=== PATIENT | female | born 1990 | race Caucasian/White ===

== ENCOUNTER 2023-12-12 17:52 | Emergency (ER) | payer BC, SELFPAY ==
[2023-12-12 18:30] VITALS: BP 113/79; PULSE 66; RESP 16; TEMP 36.4; O2SAT 100
--- NOTE | 2023-12-12 19:11 | ED_ITS ---
HPI - Psych General Chief Complaint: Psychiatric Problem/Disorder Stated Complaint: Mental health Time Seen by Provider: 12/12/23 18:10 History of Present Illness HPI Narrative: This patient is a 33-year-old female brought in by police on a transport hold after a visit to [facility] where she had contact with the marriage and family social worker. She apparently made a statement that she wanted to join her mother who 20 years ago and wanted to jump off of a bridge. She comes in here against her will. She states that she does not need to be here and wants to go. I convinced her to stay as we simply want to help her. She is interviewed by me with assistance of ALS data communications technician. Her answers are rather short and she is not specific about her needs. She does state that she needs help for trauma. I tried to ask her what kind of trauma she is talking about but she did not give a specific answer. I mentioned emotional trauma and she seem to respond to this. She states that she does not to be in an inpatient setting but would welcome outpatient therapy. She states that she is not taking any medications. She does however report use of marijuana for medicinal purposes. She is repeatedly stating that she is not suicidal and is okay to go home and wants to go home. She tells me that she has not attempted suicide in the past and has not been hospitalized. She states that she does not want any medicines or drugs to treat her symptoms. Review of Systems Status of ROS: Reports: 10 or more systems reviewed and unremarkable except as noted in History and below Narrative: The patient denies any other health issues. A detailed review of systems was not obtained due to language barrier and very brief answers to questions. Exam Narrative: Exam Narrative: Constitutional: Well-developed, well-nourished, no acute distress. HEENT: Normocephalic, atraumatic. Neck: Normal range of motion. Nontender. Supple. Heart: Intact distal pulses. Lungs: No chest discomfort. No wheezes, rhonchi, or rales. Abdomen: Nontender. Back: Normal range of motion. Extremities: Normal range of motion. No injury. Skin: Intact. No rash. Warm. No erythema or pallor. Neurologic: No altered sensation. No weakness. Alert and oriented. Deaf. Psychiatric: She denies intent to harm herself. She does not expound on any further symptoms but expresses interest in getting therapy. Nursing notes and vitals signs are reviewed. Const: Vital Signs, click to edit/add: Vital Signs - 24 hr 12/12/23 18:30 Temperature 97.6 F Pulse Rate [Pulse Oximeter] 66 Respiratory Rate 16 Blood Pressure [Ri ght Upper Arm] 113/79 Pulse Oximetry 100 Oxygen Delivery Me thod Room Air Course Vital Signs Vital signs: Initial Vital Signs Temperature 97.6 F 12/12/23 18:30 Temperature Source Temporal Artery Scan 12/12/23 18:30 Pulse Rate 66 12/12/23 18:30 Respiratory Rate 16 12/12/23 18:30 Blood Pressure 113/79 12/12/23 18:30 Blood Pressure Mean 90 12/12/23 18:30 Blood Pressure Position Sitting 12/12/23 18:30 Pulse Oximetry 100 12/12/23 18:30 Oxygen Delivery Method Room Air 12/12/23 18:30 Vital Signs Temperature 97.6 F 12/12/23 18:30 Pulse Rate 66 12/12/23 18:30 Respiratory Rate 16 12/12/23 18:30 Blood Pressure 113/79 12/12/23 18:30 Pulse Oximetry 100 12/12/23 18:30 Oxygen Delivery Method Room Air 12/12/23 18:30 Temperature 97.6 F 12/12/23 18:30 Pulse Rate 66 12/12/23 18:30 Respiratory Rate 16 12/12/23 18:30 Blood Pressure 113/79 12/12/23 18:30 Pulse Oximetry 100 12/12/23 18:30 Oxygen Delivery Method Room Air 12/12/23 18:30 MDM - Psych MDM Narrative Medical decision making narrative: This patient is brought in by police because of concern of suicidality. The patient is rather animated but is deaf and unable to speak without data communications technician. She states that she does not need to be here. She went to the clinic and was transferred here out of concern for her mental health. There was no phone call from the clinic in this regard. A nurse here did make contact with the clinic and apparently she did make a comment that she just wanted to join with her mother who about 20 years ago. Communication was very difficult as the patient was adamant that she did not need to be here and stated that she is not planning to harm herself or others. She was initially rather uncooperative but over several hours here she became more calm. She did eventually agree to have her blood checked including a serum test. This return negative as does the rest of her blood show normal findings. The patient is satisfied with this. I did request our marriage and family social worker to come and provide options for therapy. The patient was not interested in these options as they were presented. Nevertheless she did receive a packet of information with various options where she can herself connect with resources for her. I did also provide a return to work note. She repeatedly states that she is not suicidal and has never attempted to harm herself and has not been hospitalized for her mood. She repeatedly endorses safety in this regard. The Lab Data Labs: Lab Results 12/12/23 Range/Units 20:44 WBC 9.92 (4.50-11.00) K/uL RBC 4.98 (4.00-5.20) m/uL Hgb 13.4 (12.0-16.0) gm/dL Hct 41.8 (33.0-51.0) % MCV 84 (80-100) fL MCH 27 (26-34) pg MCHC 32 (32-36) gm/dL RDW Coeff of German 14.2 (11.5-15.5) % Plt Count 367 (140-440) K/uL Neut % (Auto) 60.0 (42.0-72.0) % Lymph % (Auto) 32.8 (20-44) % [place] % (Auto) 5.7 (0.0-11.0) % Eos % (Auto) 0.8 (0.0-7.0) % Baso % (Auto) 0.6 (0.0-3.0) % Neut # (Auto) 5.95 (1.7-7.0) K/uL Lymph # (Auto) 3.25 H (0.90-2.90) K/uL [place] # (Auto) 0.60 (0.00-0.90) K/UL Eos # (Auto) 0.08 (0.00-0.50) K/uL Baso # (Auto) 0.06 (0.00-0.30) K/uL Abs Immat Gran (auto) 0.01 (0.00-0.30) K/uL Imm/Tot Granulo (auto) 0.1 % Sodium 136 (135-149) mmol/L Potassium 3.5 L (3.6-5.1) mmol/L Chloride 101 (96-114) mmol/L Carbon Dioxide 23 (20-32) mmol/L Anion Gap 12 (7-15) mEq/L BUN 7 (5-24) mg/dL Creatinine 0.6 (0.5-1.5) mg/dL Estimated GFR 122 ml/min Glucose 97 (60-115) mg/dL Calcium 9.5 (8.4-10.6) mg/dL HCG, Qual Negative (Negative) Discharge Plan Discharge Clinical Impression: Encounter for psychiatric assessment Patient Disposition: Home, Self-Care Condition: Stable Additional Instructions: Follow-up with primary physician. Consider resources provided for options for therapy. Return if worsening. Follow Up/Referrals: Maria Teresa Sosa DO [Primary Care Provider] - Stand Alone Forms: [employer] Info Instructions
--- NOTE | 2023-12-12 20:22 | PC.SOCIAL ---
Addendum entered by PHILIP Irwin 12/12/23 21:06: Added the following information to written packet to be given to pt if discharged home, [place] [employer] Deaf, Deafblind and Hard of Hearing State Services division Mental Health provider directory and list of crisis services specifically identified as serving individuals who are deaf, deafblind and hard of hearing. Original Note: Social work: Attempted to complete mental health assessment with pt. Parts Technician IPad was used for this interview. Pt refused to sit for interview and stated she wants to go home and to hurry up. cone worker explained the assessment process. Ess-6 was completed with pt. However, pt's answers to some questions were not consistent with collateral information provided by others who witnessed her behavior today. Pt denied having thoughts of suicide, denied ever attempting to kill herself; denied recent or current suicide plan; denied lifetime psychiatric hospitalization; denied any substance use. Pt also denied thoughts off hurting others. Pt stated she wanted this assessment to end and did not think the hospital was providing her any assistance. cone worker offered the possibility of an out-pt appointment with Speedy Boyce, a psychiatric nurse practitioner in [place] who has some reserved appointments for hospital patients. She stated she would not see a man and asked if there is a woman. Explained that there are female therapists in [place] but that the hospital only has reserved spots with Speedy. Patient stated she wanted to talk with the physician and social insurance administrator went to get the physician. cone worker put together a packet of information on out-pt counseling options including the [facility] Mental Health Resource list, [facility] and mental health resource list with crisis line contacts. RN to provide the written information to pt if pt is discharged to home. IPad button breaker used for this entire interaction..
[2023-12-12 20:53] LABS: Basophils Absolute Auto 0.06 K/uL (0.00-0.30); Basophils Percent Auto 0.6 % (0.0-3.0); Eosinophils Absolute Auto 0.08 K/uL (0.00-0.50); Eosinophils Percent Auto 0.8 % (0.0-7.0); Hematocrit 41.8 % (33.0-51.0); Hemoglobin* 13.4 gm/dL (12.0-16.0); Immature Granulocytes Abs Auto 0.01 K/uL (0.00-0.30); Immature Granulocytes Pct Auto 0.1 %; Lymphocytes Absolute Auto 3.25 K/uL (0.90-2.90); Lymphocytes Percent Auto 32.8 % (20-44); Mean Corpuscular HGB Conc 32 gm/dL (32-36); Mean Corpuscular Hemoglobin 27 pg (26-34); Mean Corpuscular Volume 84 fL (80-100); Monocytes Percent Auto 5.7 % (0.0-11.0); Neutrophils Absolute Auto 5.95 K/uL (1.7-7.0); Platelet Count* 367 K/uL (140-440); RDW Coefficient of Variation % 14.2 % (11.5-15.5); Red Blood Count 4.98 m/uL (4.00-5.20); White Blood Count* 9.92 K/uL (4.50-11.00)
[2023-12-12 20:58] LABS: Slide Review Reflex No
[2023-12-12 21:22] LABS: Chloride* 101 mmol/L (96-114); Sodium* 136 mmol/L (135-149)
[2023-12-12 21:23] LABS: Potassium* 3.5 mmol/L (3.6-5.1)
[2023-12-12 21:25] LABS: Creatinine* 0.6 mg/dL (0.5-1.5); Estimated Glomerular Filt Rate 122 ml/min
[2023-12-12 21:26] LABS: Anion Gap 12 mEq/L (7-15); Blood Urea Nitrogen* 7 mg/dL (5-24); Calcium* 9.5 mg/dL (8.4-10.6); Carbon Dioxide* 23 mmol/L (20-32); Glucose* 97 mg/dL (60-115)
[2023-12-12 21:50] LABS: HCG Qualitative Serum* Negative (Negative)
== END 2023-12-12 22:17 | disposition home or self-care (01) ==
PROVIDERS: Emergency Provider Emergency Medicine Emergency Medical Services; PCP Family Medicine
DX: Z04.6 Encounter for general psychiatric examination, requested by authority (principal)
CPT/HCPCS: 36415; 80048; 84703; 85025; 99283; 99284